=== PATIENT | female | born 1950 | race Caucasian/White ===

== ENCOUNTER → 2016-07-07 | Day surgery (SDC) | payer OTHER, BC ==
[2016-06-27 10:44] VITALS: BMI 26.0
[~2016-07-07] VITALS: Ht 160 cm; Wt 68.2 kg
[~2016-07-07] MED LIST: BIOTCAP2 PO; CHOL100010 PO; PRT/20 PO; SODIUM CHLORIDE 0.9% 500ML 500 ML IV ONE; VNTHFA/IN INH
[2016-07-07 13:52] VITALS: Ht 160 cm; Wt 68.2 kg
--- NOTE | 2016-07-07 14:14 | Endo History and Physical ---
History & Physical Date of Service: Jul 07, 2016. Chief Complaint: screening, family hx colon cancer (uncle) Referring Physician: Dr. Oconnor History of Present Illness 65 yo CF who presents for screening colonoscopy. Past Surgical History Hx Cardiac Surgery: No Hx Internal Defibrillator: No Hx Pacemaker: No Hx Abdominal Surgery: Yes (APPY, TUBAL LIGATION) Hx of Implantable Prosthesis: No Hx Post-Op Nausea and Vomiting: No Hx Cancer Surgery: No Hx Thoracic Surgery: No Hx Orthopedic: No Hx Urinary Tract Surgery: No Family History Colon CA Social History Smoking Status: Never Smoker Hx Substance Use: No Hx Alcohol Use: Yes (A COUPLE GLASSES WINE/WEEK) Allergies Coded Allergies: No Known Allergies (Verified , 07/07/16) Current Medications Reported Home Medications Medications Dose Route/Sig Max Daily Dose Days Date Category Biotin 5000 (Biotin) 5 Mg Cap 1 Cap PO QAM 06/27/16 Reported Ventolin Hfa (Albuterol) 200 Puffs/32608 Mcg Aers 2-4 Puffs INH Q6H PRN 06/27/16 Reported Protonix (Pantoprazole Sodium) 20 Mg Tab 20 Mg PO QAM 06/27/16 Reported Vitamin D (Cholecalciferol) 1,000 Unit Tab 1 Tab PO QAM 06/27/16 Reported Vital Signs Weight (Kilograms): 68.18 Height (Feet): 5 Height (Inches): 3 Date Time Temp Pulse Resp B/P Pulse Ox O2 Delivery O2 Flow Rate FiO2 07/07/16 14:02 36.5 69 20 137/87 97 Room Air Physical Exam General Appearance: WD/WN, no apparent distress Respiratory/Chest: Auscultation: breath sounds normal Cardiovascular: Heart Auscultation: RRR Abdomen: Bowel Sounds: normal Inspection & Palpation: soft, non-distended, no tenderness, guarding & rebound Assessment and Plan Assessment: 65 yo CF who presents for screening colonoscopy. Plan: Proceed with colonoscopy.
--- NOTE | 2016-07-07 14:43 | Discharge Instructions ---
Endoscopy Patient Instructions Date / Procedure(s) Performed Jul 07, 2016. Colonoscopy Allergy Information Coded Allergies: No Known Allergies (Verified , 07/07/16) Discharge Date / Findings Jul 07, 2016. Diverticulosis Internal hemorrhoids Medication Instructions OK to resume all medications today as prescribed. Reported Home Medications Medications Dose Route/Sig Max Daily Dose Days Date Category Biotin 5000 (Biotin) 5 Mg Cap 1 Cap PO QAM 06/27/16 Reported Ventolin Hfa (Albuterol) 200 Puffs/32735 Mcg Aers 2-4 Puffs INH Q6H PRN 06/27/16 Reported Protonix (Pantoprazole Sodium) 20 Mg Tab 20 Mg PO QAM 06/27/16 Reported Vitamin D (Cholecalciferol) 1,000 Unit Tab 1 Tab PO QAM 06/27/16 Reported Provider Instructions Activity Restrictions - No exercising or heavy lifting for 24 hours. - Do not drink alcohol the day of the procedure. - Do not drive a car or operate machinery until the day after the procedure. - Do not make any important decisions or sign important papers in 24 hours after the procedure. Following Day: - Return to full activity which may include returning to work/school. Diet Start your diet with liquids and light foods (jello, soup, juice, toast). Then eat your usual diet if not nauseated. Treatment For Common After Affects For mild abdominal pain, bloating, or excessive gas: - Rest - Eat lightly - Lie on right side Follow-Up Information Follow-up with Dr. Oconnor as scheduled Anesthesia Information What You Should Know You have had a procedure that required some medicine to reduce anxiety and discomfort. This treatment is called moderate sedation. After receiving the treatment, you may be sleepy, but you will be able to breathe on your own. The effects of the treatment may last for several hours. Follow these instructions along with Activity/Diet recommendations noted above: * Do NOT do anything where dizziness or clumsiness would be dangerous. * Rest quietly at home today, then you can be up and about tomorrow. * Have a responsible person stay with you the rest of today. * You may have had an I.V. today. If so, you may take the dressing off later today. Recommendations Call your doctor if: * Trouble breathing * Continuous vomiting for more than 24 hours * Temperature above 101 degrees * Severe abdominal pain or bloating * Pain not relieved by pain medicine ordered * There is increased drainage or redness from any incision * A large amount of rectal bleeding greater than 2-3 tablespoons. (If you had a polyp/s removed or have hemorrhoids, a small amount of blood - from the rectum is to be expected.) * You have any unanswered questions or concerns. IN THE EVENT OF A SERIOUS EMERGENCY, GO TO THE NEAREST EMERGENCY ROOM Your discharge instructions were prepared by provider Chu Argueta. Patient Instructions Signature Page Randa Collado Patient (or Guardian) Signature/Date: I have read and understand the instructions given to me by my caregivers. Caregiver/RN/Doctor Signature/Date: The above-named patient and/or guardian has received patient instructions on this date. + Original Patient Signature Page (only) stays with chart. Please make copy for patient.
--- NOTE | 2016-07-07 14:51 | Anesthesiology Progress Note ---
Anesthesia Post Op Note Date & Time Jul 07, 2016 at 14:52 Vital Signs Pain Intensity: 0 Vital Signs Past 12 Hours Date Time Temp Pulse Resp B/P Pulse Ox O2 Delivery O2 Flow Rate FiO2 07/07/16 14:37 69 16 119/64 97 Room Air 07/07/16 14:02 36.5 69 20 137/87 97 Room Air Notes Mental Status: alert / awake / arousable, participated in evaluation Pt Amnestic to Procedure: Yes Nausea / Vomiting: adequately controlled Pain: adequately controlled Airway Patency, RR, SpO2: stable & adequate BP & HR: stable & adequate Hydration State: stable & adequate Anesthetic Complications: no major complications apparent
[2016-07-07 15:07] VITALS: BP 106/63; PULSE 62; O2SAT 97
--- NOTE | 2016-07-07 15:09 | GI REPORT ---
Procedure Date: 07/07/2016 2:20 PM THIS REPORT HAS BEEN AMENDED Addendum Number: 1 Addendum Date: 07/07/2016 3:16:04 PM Report should state ASA classification 2 and no blood thinners or aspirin therapy. Procedure: Colonoscopy Indications: Screening for colorectal malignant neoplasm Medicines: Monitored Anesthesia Care Complications: No immediate complications. Estimated Blood Loss: Estimated blood loss: none. Procedure: Pre-Anesthesia Assessment: - Prior to the procedure, a History and Physical was performed, and patient medications and allergies were reviewed. The patient's tolerance of previous anesthesia was also reviewed. The risks and benefits of the procedure and the sedation options and risks were discussed with the patient. All questions were answered, and informed consent was obtained. Prior Anticoagulants: The patient has taken Eliquis (apixaban), last dose was 1 day prior to procedure. ASA Grade Assessment: III - A patient with severe systemic disease. After reviewing the risks and benefits, the patient was deemed in satisfactory condition to undergo the procedure. After I obtained informed consent, the scope was passed under direct vision. Throughout the procedure, the patient's blood pressure, pulse, and oxygen saturations were monitored continuously. The scope was introduced through the anus and advanced to the terminal ileum. The colonoscopy was performed without difficulty. The patient tolerated the procedure well. The quality of the bowel preparation was good. The terminal ileum, ileocecal valve, appendiceal orifice, and rectum were photographed. Findings: Multiple small-mouthed diverticula were found in the sigmoid colon. Non-bleeding internal hemorrhoids were found during retroflexion. The hemorrhoids were small. Impression: - Diverticulosis in the sigmoid colon. - Non-bleeding internal hemorrhoids. - No specimens collected. Recommendation: - Resume previous diet. - Continue present medications. - Repeat colonoscopy in 10 years for surveillance. - Return to primary care physician as previously scheduled. Chu Maria Alejandra Argueta, DO 07/07/2016 2:49:38 PM This report has been signed electronically. Note Initiated On: 07/07/2016 2:20 PM I attest to the content of the Intraoperative Record and orders documented therein, exceptions below Chu StahlShawn Argueta, DO 07/07/2016 3:16:38 PM This report has been signed electronically.
== END | disposition home or self-care (01) ==
LOC: C.GI 13:15
PROVIDERS: ATTEND Internal Medicine
DX: Z12.11 Encounter for screening for malignant neoplasm of colon (principal); K64.8 Other hemorrhoids; K57.30 Diverticulosis of large intestine without perforation or abscess without bleeding; Z80.0 Family history of malignant neoplasm of digestive organs; Z98.890 Other specified postprocedural states; Z98.51 Tubal ligation status

== ENCOUNTER → 2016-07-18 | Outpatient (CLI) | payer OTHER, BC ==
[~2016-07-18] MED LIST changes: -SODIUM CHLORIDE 0.9% 500ML 500 ML IV ONE
[2016-07-18 10:12] LABS: BLOOD UREA NITROGEN 12 mg/dl (7-18); BUN/CREATININE RATIO 18.3 (10-20); CALCIUM 9.4 mg/dl (8.5-10.1); CARBON DIOXIDE 30 mmol/L (21-32); CHLORIDE 103 mmol/L (98-107); CHOLESTEROL 229 mg/dl (0-200); CREATININE 0.66 mg/dl (0.60-1.20); GLUCOSE 98 mg/dl (70-99); SODIUM 140 mmol/L (136-145)
[2016-07-18 10:22] LABS: CHOLESTEROL/HDL RATIO 3.2; HDL CHOLESTEROL 71 mg/dl; LDL CHOLESTEROL CALCULATED 138 mg/dl; THYROID STIMULATING HORMONE 0.953 uIu/ml (0.300-4.500); TRIGLYCERIDES 102 mg/dl (0-150); VERY LOW DENSITY LIPOPROT CALC 20 mg/dl
--- NOTE | 2016-07-22 11:36 | CODING QUERY MEDICAL NECESSITY ---
SUPPORTING DIAGNOSIS NEEDED A supporting diagnosis is required for the test/procedure performed on this patient in order for us to be reimbursed by the patient's insurance. Please provide a supporting diagnosis for the following test/procedure listed below next to the test name along with your signature. *If there is no additional diagnosis for this patient that would support the following test/procedure please document that below next to the test/procedure. Test(s)/Procedure(s) that require a supporting diagnosis: DOS 07/18 * Vitamin D DIAGNOSIS: * Lipids DIAGNOSIS: Provider Signature: Date: Thank you Steff Bo Health Information Management Once completed, please kindly fax back to [phone] For questions please call [phone]
== END | disposition home or self-care (01) ==
LOC: C.LAB1850 08:55
PROVIDERS: ATTEND Family Medicine
DX: Z11.59 Encounter for screening for other viral diseases (principal); Z12.11 Encounter for screening for malignant neoplasm of colon; Z00.00 Encounter for general adult medical examination without abnormal findings; M85.80 Other specified disorders of bone density and structure, unspecified site; E04.2 Nontoxic multinodular goiter

== ENCOUNTER → 2016-08-09 | Outpatient (CLI) | payer OTHER, BC | END | disposition home or self-care (01) | LOC: C.MAMM 10:41 | PROVIDERS: ATTEND Family Medicine | DX: M85.89 Other specified disorders of bone density and structure, multiple sites (principal); Z78.0 Asymptomatic menopausal state ==

== ENCOUNTER 2021-03-03 19:07 | Observation (INO) ==
[2021-03-03 20:17] LABS: Basophils # (auto) 0.01 K/uL (0-0.2); Basophils % (auto) 0.1 %; Eosinophils # (auto) 0.01 K/uL (0-0.5); Eosinophils % (auto) 0.1 %; Hematocrit (blood only) 46.1 % (37-47); Hemoglobin 15.6 g/dL (12.0-16.0); Immature Granulocytes # (auto) 0.04 K/uL (0.00-0.02); Immature Granulocytes % (auto) 0.2 %; Lymphocytes % (auto) 8.6 %; Mean Corpuscular Hemoglobin 31.5 pg (25-34); Mean Corpuscular Hgb Conc 33.8 g/dL (32-36); Mean Corpuscular Volume 92.9 fL (80-100); Mean Platelet Volume 10.3 fL (7.4-10.4); Monocytes % (auto) 4.6 %; Neutrophils # (auto) 15.14 K/uL (1.4-6.5); Neutrophils % (auto) 86.4 %; Platelet Count 327 K/uL (130-400); RDW Coefficient of Variation 13.6 % (11.5-14.5); RDW Standard Deviation 46.2 fL (36.4-46.3); Red Blood Count 4.96 M/uL (4.2-5.4)
[2021-03-03 20:26] LABS: Appearance Urine Clear (Clear); Bilirubin Urine Negative (Negative); Blood Urine Negative (Negative); Color Urine Yellow; Glucose Urine UA Negative (Negative); Ketones Urine Trace (Negative); Leukocyte Esterase Urine Negative (Negative); Nitrite Urine Negative (Negative); Protein Urine Negative (Negative); Specific Gravity Urine 1.021 (1.000-1.030); Urobilinogen Urine Negative (Negative)
[2021-03-03 20:45] LABS: Albumin Level 3.8 gm/dl (3.4-5.0); BUN Creatinine Ratio 18.4 (10-20); Calcium 11.2 mg/dl (8.5-10.1); Creatinine Clr Calc Pharmacy 61.2 ml/min; Est GFR (African American) 90.8 ml/min; Est GFR (Non-African American) 78.4 ml/min; Potassium 3.8 mmol/L (3.5-5.1)
[2021-03-03 20:48] LABS: Albumin Globulin Ratio 0.9 (0.9-2); Bilirubin,Total 0.3 mg/dl (0.2-1); Globulin 4.2 gm/dl (2.5-4.0)
--- NOTE | 2021-03-03 20:56 | Emergency Department Note ---
Impression & Plan Acute cholecystitis, Abdominal pain, Hypercalcemia, Nausea ED Provider Note NAME: CALI FUNEZ AGE: 70 SEX: F : 1950 ARRIVES VIA: Walk-In INFORMANT: Patient, ED PROVIDER(S): Shashi Chaudhary MD Chief Complaint: Abdominal pain HPI: Patient does present with concern for upper abdominal pain beginning around noon today. The patient did remark that she had a cataract surgery yesterday but felt fine after completion of the surgery. The patient states that there was no inciting event that caused her pain. The patient states that she was not eating anything that time. The patient has had nausea but without vomiting. The patient describes it as constant and primarily in the upper portion of the abdomen. The patient denies any dysuria, hematuria, hematochezia. The patient is at a recent bowel movement. No vaginal bleeding or discharge. Patient is vaccinated for COVID-19. The patient will typically drink 1 glass of wine with her evening meal but denies excessive drinking, tobacco or drug use. Patient denies any shortness of breath or chest pain. Patient denies URI type symptoms. Patient does have history of prior appendectomy and tubal ligation. ROS: See HPI for pertinent positives and negatives. A total of 10 systems were reviewed and otherwise negative. Past medical history: See below Surgical history: See below Social history: See below Physical Exam: GENERAL: NAD, wearing glasses, wearing a mask, non-toxic. EYE EXAM: Normal conjunctiva. PERRL, no anisocoria and EOM's grossly intact w/o pain. OROPHARYNX: Moist mucus membranes. Grossly normal dentition. No exudate, posterior pharynx is clear, no tonsillar/uvular deviation or swelling. No cervical adenopathy, no submental, submandibular, or sublingual swelling. NECK: Supple, no nuchal rigidity, no adenopathy, non-tender. No signs of meningismus. FROM of the neck with good chin to chest and neck extension. No s tridor. LUNGS: Clear to auscultation. Normal chest wall mechanics. HEART: NSR, no MRG. ABDOMEN: Abdomen soft, upper abdominal pain without lower abdominal pain, normo- active bowel sounds, no masses, no rebound or guarding. BACK: No CVA TTP. SKIN: No rashes and no bruising. UPPER EXTREMITIES: Upper extremities are grossly normal. LOWER EXTREMITIES: Grossly normal, no edema. NEURO EXAM: A&O x3, cranial nerves II-XII grossly intact, normal speech, moves all 4 extremities on command w/o issue. Differential diagnoses: Appendicitis, ovarian cyst, ovarian torsion, ectopic , TOA, PID, infections, diverticulitis, UTI, obstruction, mesenteric ischemia, aortic pathology, inflammatory bowel disease, renal colic, PUD, pancreatitis, biliary pathology, hernia, volvulus, constipation, as well as other pathologies. Course: Patient was seen and evaluated the bedside. Full history physical exam was performed. EKG interpreted by me Normal sinus rhythm, rate 85, normal intervals, normal axis, no ST changes or T WI. Imaging Studies: See Below Cardiac monitoring: An order was placed for continuous cardiac monitoring. The monitor shows a rate of 89 with sinus rhythm. MDM: Patient does present due to concern for upper abdominal pain. The patient did have blood work completed which showed a white count of 17. CT of the abdomen pelvis was ordered. This did show concern for acute cholecystitis. I did speak the on-call general surgery team Woody Mcneill the patient was admitted by Dr. Wray general surgery. Past Med/Surg History Medical History Acid reflux disease Asthma Benign paroxysmal positional vertigo GERD (gastroesophageal reflux disease) Internal hemorrhoids Multinodular goiter Osteopenia Prolapse of female pelvic organs Surgical History History of appendectomy History of tonsillectomy and adenoidectomy History of tubal ligation History of wisdom tooth extraction Family History Uncle Colorectal cancer Mother Heart failure Father Prostate cancer Denies family history of Ovarian cancer Myocardial infarction Breast cancer Social History Smoking Status: Never smoker Tobacco Type: Cigarettes Second Hand Exposure: Yes (Parents smoked); Hx Alcohol Use: Yes Alcohol Intake Frequency: 4 or More x per/Week Alcohol Intake Frequency Comment: wine with dinner Hx Substance Use: No Preferred Language: Macedonian Beliefs That Will Affect Care: Sikh Sikh Beliefs: attends [employer] marital status: Current Living Situation: Spouse Current Living Situation Comment: Lives with spouse - Noe current occupational status: retired 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 Feels Safe at Home: Yes Seatbelt Use: always Allergies Allergies Allergy/AdvReac Type Severity Reaction Status Date / Time house dust Allergy Mild ITCHY Verified 03/03/21 21:36 EYES, SNEEZING amoxicillin [From Augmentin] AdvReac Intermediate Diarrhea Verified 03/03/21 21:36 clavulanic acid AdvReac Intermediate Diarrhea Verified 03/03/21 21:36 [From Augmentin] Home Meds Home Medications Medication Instructions Recorded Confirmed cholecalciferol (vitamin D3) 50 1,000 unit PO DAILY tab 03/18/20 03/03/21 mcg (2,000 unit) tablet famotidine 20 mg tablet 20 mg PO DAILY 03/18/20 03/03/21 B [id number] tablet 1 tab PO DAILY 03/03/21 03/03/21 Previous Rx's Medication Instructions Recorded albuterol sulfate 90 mcg/actuation 2 puffs INH Q6H PRN #8 gm 05/04/19 aerosol inhaler (Ventolin HFA) ondansetron 4 mg disintegrating 4 mg PO Q6H PRN #10 tab 12/21/20 tablet Results & Data (ED) Vital Signs Vital Signs - 24 hr 03/03/21 19:21 03/03/21 20:52 03/03/21 21:00 Temperature 37.4 C Temperature Source Temporal Artery Scan Pulse Rate 81 82 Pulse Rate from SpO2 Sensor Respiratory Rate 18 21 Respiratory Effort / Characteristics Non-Labored Spontaneous Respiratory Depth Normal Blood Pressure 166/88 H 155/94 H Blood Pressure Mean 114 114 Pulse Oximetry 95 97 Oxygen Delivery Method Room Air Room Air Sepsis Recent Fever Within 48 Hours No Sepsis New/Unexplained Change in Mental Status No Sepsis Action Taken by Nursing No Action Required 03/03/21 22:00 03/03/21 22:10 03/03/21 22:20 Temperature Temperature Source Pulse Rate 82 78 85 Pulse Rate from SpO2 Sensor 78 87 Respiratory Rate 19 20 20 Respiratory Effort / Characteristics Respiratory Depth Blood Pressure 144/87 H Blood Pressure Mean 106 Pulse Oximetry 94 94 97 Oxygen Delivery Method Sepsis Recent Fever Within 48 Hours Sepsis New/Unexplained Change in Mental Status Sepsis Action Taken by Nursing 03/03/21 22:30 03/04/21 00:00 03/04/21 00:50 Temperature Temperature Source Pulse Rate 84 80 80 Pulse Rate from SpO2 Sensor 80 Respiratory Rate 18 15 19 Respiratory Effort / Characteristics Respiratory Depth Blood Pressure 155/83 H 125/69 122/76 Blood Pressure Mean 107 87 91 Pulse Oximetry 94 90 92 Oxygen Delivery Method Sepsis Recent Fever Within 48 Hours Sepsis New/Unexplained Change in Mental Status Sepsis Action Taken by [facility] Medications Current Medication List: was personally reviewed by me Laboratory Data Attestation: I reviewed the patient's lab results. Result diagrams: 03/03/21 20:07 03/03/21 20:07 Lab Results 03/03/21 03/03/21 03/03/21 Range/Units 20:07 20:07 20:07 WBC 17.50 H (4.8-10.8) K/uL RBC 4.96 (4.2-5.4) M/uL Hgb 15.6 (12.0-16.0) g/dL Hct 46.1 (37-47) % MCV 92.9 (80-100) fL MCH 31.5 (25-34) pg MCHC 33.8 (32-36) g/dL RDW Std Deviation 46.2 (36.4-46.3) fL RDW Coeff of Yun 13.6 (11.5-14.5) % Plt Count 327 (130-400) K/uL MPV 10.3 (7.4-10.4) fL Immature Gran % (Auto) 0.2 % Neut % (Auto) 86.4 % Lymph % (Auto) 8.6 % Sebastian % (Auto) 4.6 % Eos % (Auto) 0.1 % Baso % (Auto) 0.1 % Neut # (Auto) 15.14 H (1.4-6.5) K/uL Lymph # (Auto) 1.50 (1.2-3.4) K/uL Sebastian # (Auto) 0.80 H (0.11-0.59) K/uL Eos # (Auto) 0.01 (0-0.5) K/uL Baso # (Auto) 0.01 (0-0.2) K/uL Immature Gran # (Auto) 0.04 H (0.00-0.02) K/uL Sodium 137 (136-145) mmol/L Potassium 3.8 (3.5-5.1) mmol/L Chloride 102 (98-107) mmol/L Carbon Dioxide 27 (21-32) mmol/L Anion Gap 7.0 (3-11) BUN 14 (7-18) mg/dl Creatinine 0.76 (0.6-1.2) mg/dl Est Cr Clr Drug Dosing 61.2 ml/min Est GFR ( Amer) 90.8 ml/min Est GFR (Non-Af Amer) 78.4 ml/min BUN/Creatinine Ratio 18.4 (10-20) Glucose 136 H (70-99) mg/dl Calcium 11.2 H (8.5-10.1) mg/dl Total Bilirubin 0.3 (0.2-1) mg/dl AST 15 (15-37) U/L ALT 27 (12-78) U/L Alkaline Phosphatase 129 H (45-117) U/L Total Protein 8.0 (6.4-8.2) gm/dl Albumin 3.8 (3.4-5.0) gm/dl Globulin 4.2 H (2.5-4.0) gm/dl Albumin/Globulin Ratio 0.9 (0.9-2) Lipase 99 (73-393) U/L Urine Color Yellow Urine Appearance Clear (Clear) Urine pH 5.0 (4.5-7.5) Ur Specific [place] 1.021 (1.000-1.030) Urine Protein Negative (Negative) Urine Glucose (UA) Negative (Negative) Urine Ketones Trace H (Negative) Urine Blood Negative (Negative) Urine Nitrite Negative (Negative) Urine Bilirubin Negative (Negative) Urine Urobilinogen Negative (Negative) Ur Leukocyte Esterase Negative (Negative) COVID-19 Eval Order SARS-CoV-2 (PCR) (Negative) 03/03/21 03/03/21 Range/Units 22:49 22:49 WBC (4.8-10.8) K/uL RBC (4.2-5.4) M/uL Hgb (12.0-16.0) g/dL Hct (37-47) % MCV (80-100) fL MCH (25-34) pg MCHC (32-36) g/dL RDW Std Deviation (36.4-46.3) fL RDW Coeff of Yun (11.5-14.5) % Plt Count (130-400) K/uL MPV (7.4-10.4) fL Immature Gran % (Auto) % Neut % (Auto) % Lymph % (Auto) % Sebastian % (Auto) % Eos % (Auto) % Baso % (Auto) % Neut # (Auto) (1.4-6.5) K/uL Lymph # (Auto) (1.2-3.4) K/uL Sebastian # (Auto) (0.11-0.59) K/uL Eos # (Auto) (0-0.5) K/uL Baso # (Auto) (0-0.2) K/uL Immature Gran # (Auto) (0.00-0.02) K/uL Sodium (136-145) mmol/L Potassium (3.5-5.1) mmol/L Chloride (98-107) mmol/L Carbon Dioxide (21-32) mmol/L Anion Gap (3-11) BUN (7-18) mg/dl Creatinine (0.6-1.2) mg/dl Est Cr Clr Drug Dosing ml/min Est GFR ( Amer) ml/min Est GFR (Non-Af Amer) ml/min BUN/Creatinine Ratio (10-20) Glucose (70-99) mg/dl Calcium (8.5-10.1) mg/dl Total Bilirubin (0.2-1) mg/dl AST (15-37) U/L ALT (12-78) U/L Alkaline Phosphatase (45-117) U/L Total Protein (6.4-8.2) gm/dl Albumin (3.4-5.0) gm/dl Globulin (2.5-4.0) gm/dl Albumin/Globulin Ratio (0.9-2) Lipase (73-393) U/L Urine Color Urine Appearance (Clear) Urine pH (4.5-7.5) Ur Specific [place] (1.000-1.030) Urine Protein (Negative) Urine Glucose (UA) (Negative) Urine Ketones (Negative) Urine Blood (Negative) Urine Nitrite (Negative) Urine Bilirubin (Negative) Urine Urobilinogen (Negative) Ur Leukocyte Esterase (Negative) COVID-19 Eval Order Covid19 at [facility] SARS-CoV-2 (PCR) NEGATIVE (Negative) Administered Medications Discontinued Medications Cefoxitin Sodium (Mefoxin) 2,000 mg in 60 mls @ 100 mls/hr IV NOW STA Stop: 03/03/21 23:18 Last Infusion: 03/04/21 00:30 Dose: 0 mls/hr Documented by: [id number] Admin: 03/03/21 23:52 Dose: 100 mls/hr Documented by: [id number] Ioversol (Optiray 320 100ml) 92 ml IV ONCE ONE Stop: 03/03/21 21:31 Last Admin: 03/03/21 21:30 Dose: 92 ml Documented by: [id number] Morphine Sulfate (Morphine Sulfate 4 Mg/Ml 1 Ml Carp\Vial) 4 mg IV NOW STA Stop: 03/03/21 23:37 Last Admin: 03/03/21 23:48 Dose: 4 mg Documented by: [id number] Ondansetron HCl (Ondansetron Inj 2 Mg/Ml 2 Ml Vial) 4 mg IV NOW STA Stop: 03/03/21 21:09 Last Admin: 03/03/21 21:13 Dose: 4 mg Documented by: [id number] Imaging Data Radiologist's Impression: CT abdomen pelvis per stat read shows gallbladder distention, cholelithiasis and mild edema. Findings suggest cholecystitis. Discharge Plan Visit Data Chief Complaint: Abdominal Pain Stated Complaint: UPPER ABDOMINAL PAIN ED Provider: Shashi Chaudhary Discharge Problem: Acute cholecystitis, Abdominal pain, Hypercalcemia, Nausea Patient Disposition: Admitted As Inpatient Discharge Instructions Interventions: ED Discharge Assessment Last Done: 03/04/21 00:53 Forms Stand Alone Forms: [place] [place] Prescriptions Prescriptions: No Action albuterol sulfate [Ventolin HFA] 90 mcg/actuation HFA aerosol inhaler 2 puffs INH Q6H PRN (Reason: shortness of breath or wheezing) Qty: 8 RF: 0 cholecalciferol (vitamin D3) 50 mcg (2,000 unit) tablet 1,000 unit PO DAILY RF: 0 famotidine 20 mg tablet 20 mg PO DAILY RF: 0 ondansetron 4 mg tablet,disintegrating 4 mg PO Q6H PRN (Reason: nausea and vomiting) Qty: 10 RF: 0 B [id number] Tablet 1 tab PO DAILY RF: 0 Referrals Referrals: Bereket Partida III, CRNP [Primary Care Provider] - Discharge Problem: Abdominal pain Qualifiers: Abdominal location: right upper quadrant Qualified Code(s): R10.11 - Right upper quadrant pain
[2021-03-03] MEDS ORDERED: ONDANSETRON INJ 2 MG/ML 2 ML VIAL IV STA (21:08)
[2021-03-03] MEDS ORDERED: OPTIRAY 320 100ml IV ONE (21:30)
[2021-03-03] MEDS ORDERED: cefOXitin 2,000 MG/60 ML BAG IV STA (22:43)
--- NOTE | 2021-03-03 22:56 | History & Physical Report ---
Date of Service March 03, 2021 Assessment & Plan (1) Cholecystitis: Plan: Due to the patient's imaging and clinical presentation we will bit the patient and proceed as follows: Provide analgesics Provide antiemetics Maintain n.p.o. status Provide IV fluid for hydration We will administer antibiotics in the form of cefoxitin We will check a gallbladder ultrasound for more definitive evaluation of her biliary system We will repeat labs including a CBC and a CMP in the morning We will tentatively plan on cholecystectomy tomorrow. I have discussed the risks, benefits, and alternatives with the patient and she is willing to proceed. Dr. Wray will discuss with her further in the morning We will check a preoperative chest x-ray We will check a preoperative EKG We will check a Covid test The patient be a level 1 full code We will use SCDs for DVT prevention. We will not use chemical means due to planned surgery. History of Present Illness Chief Complaint: Cholecystitis Primary Care Provider: Bereket Partida III, MARU This is a 70-year-old female who presented to [facility] emergency department secondary abdominal pain. The patient says that the abdominal pain is located in her upper abdomen in the epigastric, left upper quadrant, as well as right upper quadrant.The patient notes that the pain occurred randomly and was not related to meals. She says that the pain does not radiate. She denies any provocative factors and notes that the pain is palliated with medicines administered in the emergency department. She denies any fevers, shakes, chills. She did have nausea without vomiting. Looking back over the past several months patient says that intermittently she will get some indigestion 20 to 30 minutes after eating but has never been problematic such as this. Because of her symptoms she presented the emergency department. The patient does note that she has had prior abdominal surgery as she has had a laparoscopic appendectomy in the past. In the emergency department patient had labs and imaging which I independently reviewed. She did have a CT scan of the abdomen and pelvis which showed gallbladder distention with cholelithiasis. There is mild gallbladder edema. The interpreting radiologist favored a diagnosis of cholecystitis on the study. Labs include a CBC her white blood cell count was elevated at 17.5. Her hemoglobin, hematocrit, and platelet count were within normal range. Chemistry profile showed sodium, potassium, BUN, and creatinine were within normal range. Patient's bilirubin and transaminases were noted to be normal and not elevated. There is no elevation of her lipase. There is slight elevation of the alkaline phosphatase at 129. Urinalysis was not indicative of infection. I questioned the patient about her day-to-day activities and she leads an active lifestyle. The patient says that she can easily walk a mile on a flat surfaces she can negotiate steps and inclines without chest pain or shortness of breath. At time of interview she was resting comfortably in bed in no distress. Allergies Allergy/AdvReac Type Severity Reaction Status Date / Time house dust Allergy Mild ITCHY Verified 03/03/21 21:36 EYES, SNEEZING amoxicillin [From Augmentin] AdvReac Intermediate Diarrhea Verified 03/03/21 21:36 clavulanic acid AdvReac Intermediate Diarrhea Verified 03/03/21 21:36 [From Augmentin] Home Medications Medication Instructions Recorded Confirmed Type albuterol sulfate 90 mcg/actuation 2 puffs INH Q6H PRN #8 gm 05/04/19 03/03/21 Rx aerosol inhaler (Ventolin HFA) cholecalciferol (vitamin D3) 50 1,000 unit PO DAILY tab 03/18/20 03/03/21 History mcg (2,000 unit) tablet famotidine 20 mg tablet 20 mg PO DAILY 03/18/20 03/03/21 History ondansetron 4 mg disintegrating 4 mg PO Q6H PRN #10 tab 12/21/20 03/03/21 Rx tablet B [id number] tablet 1 tab PO DAILY 03/03/21 03/03/21 History Past Med/Surg History Medical History Acid reflux disease Asthma Benign paroxysmal positional vertigo GERD (gastroesophageal reflux disease) Internal hemorrhoids Multinodular goiter Osteopenia Prolapse of female pelvic organs Surgical History History of appendectomy History of tonsillectomy and adenoidectomy History of tubal ligation History of wisdom tooth extraction Family History Uncle Colorectal cancer Mother Heart failure Father Prostate cancer Denies family history of Ovarian cancer Myocardial infarction Breast cancer Social History Smoking Status: Former smoker Tobacco Type: Cigarettes Smoking End Date: ; Second Hand Exposure: Yes (Parents smoked); Hx Alcohol Use: Yes Alcohol type: wine Alcohol Intake Frequency: 4 or More x per/Week Alcohol Intake Frequency Comment: wine with dinner Hx Substance Use: No Preferred Language: Tamazight Communication Ability: Effective Pathologist Assistant Required: No Beliefs That Will Affect Care: None marital status: Current Living Situation: Spouse Current Living Situation Comment: Lives with spouse - [place] current occupational status: retired 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 Other Information That Helps Us Care for You: No Feels Safe at Home: Yes Safety Concerns: Feels Safe At This Time Seatbelt Use: always Assistive Devices: None Review of Systems Constitutional: no fever and no chills Eyes: no diplopia Ear, Nose, Mouth, Throat: no ear pain and no sore throat Respiratory: no cough and no dyspnea Cardiovascular: no chest pain Gastrointestinal: + abdominal pain and + nausea; no vomiting Genitourinary: no dysuria Musculoskeletal: no back pain Integumentary: no rash Neurologic: no localized weakness Physical Exam Constitutional: well developed and well nourished; no acute distress and not ill appearing Eyes: Wears glasses ENMT: Ears: no hearing impairment Mouth: no oropharynx abnormality Neck: trachea midline Respiratory: normal respiratory effort; no respiratory distress and no labored breathing Cardiovascular: Rate/Rhythm: regular rate and regular rhythm Gastrointestinal (Abdomen): Abdomen soft and nondistended. There is no r ebound tenderness or guarding. Patient did have pain with palpation in the epigastric area and to a greater extent the right upper quadrant. Kirk sign was noted to be positive Musculoskeletal: No calf tenderness Skin: no rashes Neurologic: moves all extremities Psychiatric: A+Ox3, euthymic affect Results & Data Results & Data ([facility]) Vital Signs (Past 12 Hours) Vital Signs Temp Pulse Resp BP Pulse Ox 03/03/21 22:20 85 20 97 03/03/21 22:10 78 20 94 03/03/21 22:00 82 19 144/87 H 94 03/03/21 21:00 82 21 155/94 H 97 03/03/21 19:21 37.4 C 81 18 166/88 H 95 Code Status & VTE Plan VTE Prophylaxis Plan VTE Prophylaxis will be ordered: Yes Supervising Physician Co-Signing Physician Notes Patient discussed with CONCETTA Rdz overnight, labs and imaging reviewed, agree with above. 70-year-old female with acute calculus cholecystitis, will plan for admission and laparoscopic cholecystectomy on 04 March. PG Care Time/CCT Total # of Minutes Spent Total Time Spent with Patient: Total time spent is greater than 50% in coordination of care (as documented) at patient's floor/unit and/or counseling patient: Coding Level of Care Code INT OBSERVATION CARE 70M LVL 3 Diagnoses Cholecystitis K81.9
[2021-03-03] MEDS ORDERED: MoRPHine SULFATE 4 MG/ML 1 ML CARP\\VIAL IV STA (23:36)
[2021-03-04] MEDS ORDERED: ONDANSETRON INJ 2 MG/ML 2 ML VIAL IV PRN ×2 (01:41→12:37)
[2021-03-04] MEDS ORDERED: ALBUTEROL HFA 8 GM INHALER INH PRN (01:41)
[2021-03-04] MEDS: LACTATED RINGER'S 1,000 ML IV SCH ×2 (02:20→18:53)
[2021-03-04] MEDS: cefOXitin 2,000 MG in DEXTROSE 5% 50 ML IV SCH ×4 (05:39→23:04)
[2021-03-04] MEDS: MoRPHine SULFATE 4 MG/ML 1 ML CARP\\VIAL IV PRN ×2 (05:48→09:38)
[2021-03-04 05:58] LABS: Basophils # (auto) 0.01 K/uL (0-0.2); Basophils % (auto) 0.1 %; Eosinophils # (auto) 0.01 K/uL (0-0.5); Eosinophils % (auto) 0.1 %; Hematocrit (blood only) 42.6 % (37-47); Immature Granulocytes # (auto) 0.04 K/uL (0.00-0.02); Immature Granulocytes % (auto) 0.3 %; Lymphocytes # (auto) 2.14 K/uL (1.2-3.4); Lymphocytes % (auto) 14.2 %; Mean Corpuscular Hemoglobin 31.1 pg (25-34); Mean Corpuscular Volume 94.7 fL (80-100); Monocytes # (auto) 0.95 K/uL (0.11-0.59); Monocytes % (auto) 6.3 %; Neutrophils # (auto) 11.89 K/uL (1.4-6.5); Platelet Count 257 K/uL (130-400); RDW Coefficient of Variation 13.6 % (11.5-14.5); RDW Standard Deviation 47.4 fL (36.4-46.3); White Blood Count 15.04 K/uL (4.8-10.8)
[2021-03-04 06:10] LABS: Mean Corpuscular Hgb Conc 32.9 g/dL (32-36)
[2021-03-04 06:23] LABS: Albumin Globulin Ratio 0.8 (0.9-2); Albumin Level 3.1 gm/dl (3.4-5.0); BUN Creatinine Ratio 14.1 (10-20); Bilirubin,Total 0.6 mg/dl (0.2-1); Calcium 9.5 mg/dl (8.5-10.1); Creatinine Clr Calc Pharmacy 58.8 ml/min; Est GFR (African American) 86.7 ml/min; Est GFR (Non-African American) 74.8 ml/min; Globulin 3.7 gm/dl (2.5-4.0); Potassium 3.9 mmol/L (3.5-5.1); Total Protein 6.8 gm/dl (6.4-8.2)
--- NOTE | 2021-03-04 07:22 | Ultrasound Report ---
ULTRASOUND RIGHT UPPER QUADRANT ABDOMEN CLINICAL HISTORY: Right upper quadrant abdominal pain. COMPARISON STUDY: Abdominal CT performed the same day 03/03/2021. TECHNIQUE: Real-time, grayscale, and color flow sonography of the right upper quadrant of the abdomen was performed. Images are reviewed in the transverse and longitudinal planes. FINDINGS: Liver: The liver is normal in size and echotexture. There is no intrahepatic biliary ductal dilatatio n. The main portal vein is patent. Scattered hepatic cysts measure up to 3.5 cm. Gallbladder: The gallbladder is distended and contains both shadowing gallstones and sludge. Several stones are seen in the region of the gallbladder neck. The gallbladder wall is thickened and edematou s, measuring up to 5 mm. There is no pericholecystic fluid. A sonographic Kirk's sign could not be evaluated as the patient received analgesia. The common bile duct measures up to 0.3 cm in diameter. Pancreas: Visualized portions of the pancreatic head and body are normal in appearance. Right kidney: Survey images of the right kidney demonstrate normal size and echotexture. There is no hydronephrosis. Ascites: None. IMPRESSION: 1. Cholelithiasis with evidence of acute cholecystitis. Surgical consultation is advised. 2. No intra or extrahepatic biliary ductal dilatation is identified. ACT 112: Negative or not required by law. Electronically signed by: Gaston Baum M.D. 03/04/2021 7:20 AM
--- NOTE | 2021-03-04 07:26 | CT Scan Report ---
CT abd pelvis IV con only CLINICAL HISTORY: upper ab pain TECHNIQUE: Helical axial images of the abdomen and pelvis were obtained and displayed. Automated dose lowering techniques and/or adjustment according to patient size were utilized for this exam. This e xam was performed with intravenous contrast. COMPARISON: None available at the time of this dictation. FINDINGS: Lower chest: Bibasilar atelectasis is seen. Liver: Multiple hypodensities are seen compatible with cysts Gallbladder and biliary tree: Distended gallbladder with multiple stones in the gallbladder body and neck. Mild wall thickening to approximately 4 mm in cholecystic fluid noted. No intra- or extrahepati c biliary ductal dilation. Pancreas: Unremarkable, no focal lesions. Spleen: Unremarkable. Adrenals: Unremarkable. Kidneys and ureters: Unremarkable. Bladder: Unremarkable. Reproductive organs: Unremarkable. Bowel: Diverticulosis is seen without evidence of diverticulitis. Lymph nodes Retroperitoneal: Unremarkable. Mesenteric: Unremarkable. Pelvic: Unremarkable. Peritoneum: Normal Vessels: Atherosclerosis is seen. Abdominal wall: A fat-containing umbilical hernia is seen. Bones: Degenerative changes in the visualized spine. IMPRESSION: Findings are compatible with acute cholecystitis. ACT 112: Negative or not required by law. Electronically signed by: Rishi Antunez M.D. 03/04/2021 7:25 AM
--- NOTE | 2021-03-04 07:39 | XRay Report ---
XR chest 1V portable CLINICAL HISTORY: Cholecystitis TECHNIQUE: Single frontal radiograph of the chest was obtained. Comparison: None available at the time of this dictation. FINDINGS: No lines and tubes are seen. The cardiomediastinal silhouette is normal. Bibasilar atelectasis is not ed. No evidence of pleural effusion or pneumothorax. IMPRESSION: No acute chest disease. ACT 112: Negative or not required by law. Electronically signed by: Rishi Antunez M.D. 03/04/2021 7:37 AM
--- NOTE | 2021-03-04 09:35 | Anesthesiology Consultation ---
Date of Service March 04, 2021 Assessment & Plan (1) Encounter for pre-operative examination: Chart Review Chart Review: Acceptable Risk for Surgery History Surgery Operation Date: 03/04/21 09:20 Proposed Procedures p Laparoscopic Cholecystectomy - Cameron Wray DO, JOSUE Height/Weight Height: 5 ft 2 in Weight: 69.5 kg Allergies Allergy/AdvReac Type Severity Reaction Status Date / Time house dust Allergy Mild ITCHY Verified 03/03/21 21:36 EYES, SNEEZING amoxicillin [From Augmentin] AdvReac Intermediate Diarrhea Verified 03/03/21 21:36 clavulanic acid AdvReac Intermediate Diarrhea Verified 03/03/21 21:36 [From Augmentin] Medications Home Medications Medication Instructions Recorded Confirmed Last Taken albuterol sulfate 90 mcg/actuation 2 puffs INH Q6H PRN #8 gm 05/04/19 03/03/21 12/21/18 aerosol inhaler (Ventolin HFA) cholecalciferol (vitamin D3) 50 1,000 unit PO DAILY tab 03/18/20 03/03/21 03/03/21 mcg (2,000 unit) tablet famotidine 20 mg tablet 20 mg PO DAILY 03/18/20 03/03/21 03/03/21 ondansetron 4 mg disintegrating 4 mg PO Q6H PRN #10 tab 12/21/20 03/03/21 Unknown tablet B [id number] tablet 1 tab PO DAILY 03/03/21 03/03/21 03/03/21 Active Medications Generic Name Dose Route Start Last Admin Trade Name Freq PRN Reason Stop Dose Admin Lactated Ringer's 1,000 mls @ 75 mls/hr 03/04/21 01:41 03/04/21 02:20 Lr IV 04/03/21 01:40 75 mls/hr .[id number] MEGAN Administration Cefoxitin Sodium 2,000 mg/ 60 mls @ 100 mls/hr 03/04/21 06:00 03/04/21 06:25 Dextrose IV 03/14/21 01:40 Infused Q6H MEGAN Infusion Morphine Sulfate 3 mg 03/04/21 01:41 03/04/21 05:48 Morphine Sulfate 4 Mg/Ml 1 Ml Carp\Vial IV 03/18/21 01:40 3 mg Q3H PRN Administration Pain NPO Date Last Intake of Fluids: 03/03/21 Past Medical History Medical History Acid reflux disease Asthma Benign paroxysmal positional vertigo GERD (gastroesophageal reflux disease) Internal hemorrhoids Multinodular goiter Osteopenia Prolapse of female pelvic organs Past Family History Family History Uncle Colorectal cancer Mother Heart failure Father Prostate cancer Denies family history of Ovarian cancer Myocardial infarction Breast cancer Past Surgical History Surgical History History of appendectomy History of tonsillectomy and adenoidectomy History of tubal ligation History of wisdom tooth extraction Social History Smoking Status: Former smoker Smoking End Date: Hx Alcohol Use: Yes Alcohol type: wine Alcohol Intake Frequency Comment: GLASS OF WINE WITH DINNER Hx Substance Use: No Physical Exam Vital Signs Last Vital Signs Temp 37.5 C 03/04/21 07:22 Pulse 90 03/04/21 07:22 Resp 14 03/04/21 07:22 BP 113/69 03/04/21 07:22 Pulse Ox 92 03/04/21 07:22 Testing Laboratory Results 03/04/21 05:47 03/04/21 05:47 Urine Color Yellow 03/03/21 20:07 Urine Appearance Clear (Clear) 03/03/21 20:07 Urine pH 5.0 (4.5-7.5) 03/03/21 20:07 Ur Specific [place] 1.021 (1.000-1.030) 03/03/21 20:07 Urine Protein Negative (Negative) 03/03/21 20:07 Urine Glucose (UA) Negative (Negative) 03/03/21 20:07 Urine Ketones Trace (Negative) H 03/03/21 20:07 Urine Nitrite Negative (Negative) 03/03/21 20:07 Ur Leukocyte Esterase Negative (Negative) 03/03/21 20:07 Electrocardiogram Date: 03/03/21 Findings: + NSR @ (85)
[2021-03-04] MEDS: FAMOTIDINE 20 MG TAB PO SCH (09:42)
[2021-03-04] MEDS: CHOLECALCIFEROL 1,000 UNITS 25 MCG TAB PO SCH (09:42)
[2021-03-04] MEDS ORDERED: ROCURONIUM BROMIDE 10 MG/ML 5 ML VIAL IV ONE (11:30)
[2021-03-04] MEDS ORDERED: PROPOFOL IV EMULSION 10 MG/ML 20 ML VIAL IV ONE (11:30)
[2021-03-04] MEDS ORDERED: fentaNYL citrate 100 MCG/2 ML VIAL ONE ×3 (11:31→14:33)
[2021-03-04] MEDS ORDERED: BUPIVACAINE 0.5 % 5 MG/1 ML MPF 30ML VIAL ONE (11:36)
[2021-03-04] MEDS ORDERED: ATROPINE SULFATE 0.1 MG/ML 10ML SYR IV PRN (12:37)
[2021-03-04] MEDS ORDERED: KETOROLAC 30 MG/ML VIAL IV PRN ×2 (12:37→14:32)
[2021-03-04] MEDS ORDERED: fentaNYL citrate 100 MCG/2 ML VIAL IV PRN (12:37)
--- NOTE | 2021-03-04 12:39 | Surgery Progress Note ---
Date of Service March 04, 2021 Assessment & Plan (1) Acute calculous cholecystitis: Plan: 70-year-old female with acute calculus cholecystitis Plan for laparoscopic cholecystectomy, possible cholangiogram The risk the procedure were discussed to include but not limited to bleeding, infection, retained stone, bile leak, damage surrounding structures including common bile duct, conversion open, need for future more extensive surgery, and the risk of anesthesia Likely discharge tomorrow Admission and Anticipated Discharge Date Admission Date: March 03, 2021 Subjective 70-year-old female admitted with acute calculus cholecystitis, feeling slightly better but still with abdominal discomfort. Physical Exam Constitutional: WD/WN, vitals as above Respiratory: normal respiratory effort, lungs clear to auscultation Cardiovascular: RRR, no murmur, no edema Gastrointestinal (Abdomen): Percussion/Palpation: + abdomen tender (Tender to palpation in right upper quadrant) and abdomen soft; no guarding, abdomen not rigid and no hepatosplenomegaly Results & Data ([facility]) Vital Signs (Past 12 Hours) Vital Signs Temp Pulse Pulse Resp BP BP Pulse Ox 03/04/21 12:17 37.1 C 101 H 18 127/74 91 03/04/21 11:03 37.8 C H 88 18 116/67 92 03/04/21 07:22 37.5 C 90 14 113/69 92 03/04/21 01:05 36.9 C 89 16 148/86 H 94 03/04/21 00:50 80 19 122/76 92 Laboratory Results Laboratory Results - last 24 hr 03/03/21 03/03/21 03/03/21 20:07 20:07 20:07 WBC 17.50 H RBC 4.96 Hgb 15.6 Hct 46.1 MCV 92.9 MCH 31.5 MCHC 33.8 RDW Std Deviation 46.2 RDW Coeff of Yun 13.6 Plt Count 327 MPV 10.3 Immature Gran % (Auto) 0.2 Neut % (Auto) 86.4 Lymph % (Auto) 8.6 Norton % (Auto) 4.6 Eos % (Auto) 0.1 Baso % (Auto) 0.1 Neut # (Auto) 15.14 H Lymph # (Auto) 1.50 Norton # (Auto) 0.80 H Eos # (Auto) 0.01 Baso # (Auto) 0.01 Immature Gran # (Auto) 0.04 H Sodium 137 Potassium 3.8 Chloride 102 Carbon Dioxide 27 Anion Gap 7.0 BUN 14 Creatinine 0.76 Est Cr Clr Drug Dosing 61.2 Est GFR ( Amer) 90.8 Est GFR (Non-Af Amer) 78.4 BUN/Creatinine Ratio 18.4 Glucose 136 H Calcium 11.2 H Total Bilirubin 0.3 AST 15 ALT 27 Alkaline Phosphatase 129 H Total Protein 8.0 Albumin 3.8 Globulin 4.2 H Albumin/Globulin Ratio 0.9 Lipase 99 Urine Color Yellow Urine Appearance Clear Urine pH 5.0 Ur Specific [place]ramer 1.021 Urine Protein Negative Urine Glucose (UA) Negative Urine Ketones Trace H Urine Blood Negative Urine Nitrite Negative Urine Bilirubin Negative Urine Urobilinogen Negative Ur Leukocyte Esterase Negative COVID-19 Eval Order SARS-CoV-2 (PCR) 03/03/21 03/03/21 03/04/21 22:49 22:49 05:47 WBC 15.04 H RBC 4.50 Hgb 14.0 Hct 42.6 MCV 94.7 MCH 31.1 MCHC 32.9 RDW Std Deviation 47.4 H RDW Coeff of Yun 13.6 Plt Count 257 MPV 10.0 Immature Gran % (Auto) 0.3 Neut % (Auto) 79.0 Lymph % (Auto) 14.2 Norton % (Auto) 6.3 Eos % (Auto) 0.1 Baso % (Auto) 0.1 Neut # (Auto) 11.89 H Lymph # (Auto) 2.14 Norton # (Auto) 0.95 H Eos # (Auto) 0.01 Baso # (Auto) 0.01 Immature Gran # (Auto) 0.04 H Sodium Potassium Chloride Carbon Dioxide Anion Gap BUN Creatinine Est Cr Clr Drug Dosing Est GFR ( Amer) Est GFR (Non-Af Amer) BUN/Creatinine Ratio Glucose Calcium Total Bilirubin AST ALT Alkaline Phosphatase Total Protein Albumin Globulin Albumin/Globulin Ratio Lipase Urine Color Urine Appearance Urine pH Ur Specific [place]ramer Urine Protein Urine Glucose (UA) Urine Ketones Urine Blood Urine Nitrite Urine Bilirubin Urine Urobilinogen Ur Leukocyte Esterase COVID-19 Eval Order Covid19 at [facility] SARS-CoV-2 (PCR) NEGATIVE 03/04/21 05:47 WBC RBC Hgb Hct MCV MCH MCHC RDW Std Deviation RDW Coeff of Yun Plt Count MPV Immature Gran % (Auto) Neut % (Auto) Lymph % (Auto) [place] % (Auto) Eos % (Auto) Baso % (Auto) Neut # (Auto) Lymph # (Auto) Norton # (Auto) Eos # (Auto) Baso # (Auto) Immature Gran # (Auto) Sodium 136 Potassium 3.9 Chloride 102 Carbon Dioxide 32 Anion Gap 2.0 L BUN 11 Creatinine 0.79 Est Cr Clr Drug Dosing 58.8 Est GFR ( Amer) 86.7 Est GFR (Non-Af Amer) 74.8 BUN/Creatinine Ratio 14.1 Glucose 132 H Calcium 9.5 D Total Bilirubin 0.6 AST 12 L ALT 21 Alkaline Phosphatase 104 Total Protein 6.8 Albumin 3.1 L Globulin 3.7 Albumin/Globulin Ratio 0.8 L Lipase Urine Color Urine Appearance Urine pH Ur Specific [place]ramer Urine Protein Urine Glucose (UA) Urine Ketones Urine Blood Urine Nitrite Urine Bilirubin Urine Urobilinogen Ur Leukocyte Esterase COVID-19 Eval Order SARS-CoV-2 (PCR) Diagnostic Findings CT abd pelvis IV con only CLINICAL HISTORY: upper ab pain TECHNIQUE: Helical axial images of the abdomen and pelvis were obtained and displayed. Automated dose lowering techniques and/or adjustment according to patient size were utilized for this exam. This exam was performed with intravenous contrast. COMPARISON: None available at the time of this dictation. FINDINGS: Lower chest: Bibasilar atelectasis is seen. Liver: Multiple hypodensities are seen compatible with cysts Gallbladder and biliary tree: Distended gallbladder with multiple stones in the gallbladder body and neck. Mild wall thickening to approximately 4 mm in cholecystic fluid noted. No intra- or extrahepatic biliary ductal dilation. Pancreas: Unremarkable, no focal lesions. Spleen: Unremarkable. Adrenals: Unremarkable. Kidneys and ureters: Unremarkable. Bladder: Unremarkable. Reproductive organs: Unremarkable. Bowel: Diverticulosis is seen without evidence of diverticulitis. Lymph nodes Retroperitoneal: Unremarkable. Mesenteric: Unremarkable. Pelvic: Unremarkable. Peritoneum: Normal Vessels: Atherosclerosis is seen. Abdominal wall: A fat-containing umbilical hernia is seen. Bones: Degenerative changes in the visualized spine. IMPRESSION: Findings are compatible with acute cholecystitis. ULTRASOUND RIGHT UPPER QUADRANT ABDOMEN CLINICAL HISTORY: Right upper quadrant abdominal pain. COMPARISON STUDY: Abdominal CT performed the same day 03/03/2021. TECHNIQUE: Real-time, grayscale, and color flow sonography of the right upper quadrant of the abdomen was performed. Images are reviewed in the transverse and longitudinal planes. FINDINGS: Liver: The liver is normal in size and echotexture. There is no intrahepatic biliary ductal dilatation. The main portal vein is patent. Scattered hepatic cysts measure up to 3.5 cm. Gallbladder: The gallbladder is distended and contains both shadowing gallstones and sludge. Several stones are seen in the region of the gallbladder neck. The gallbladder wall is thickened and edematous, measuring up to 5 mm. There is no pericholecystic fluid. A sonographic Kirk's sign could not be evaluated as the patient received analgesia. The common bile duct measures up to 0.3 cm in diameter. Pancreas: Visualized portions of the pancreatic head and body are normal in appearance. Right kidney: Survey images of the right kidney demonstrate normal size and echotexture. There is no hydronephrosis. Ascites: None. IMPRESSION: 1. Cholelithiasis with evidence of acute cholecystitis. Surgical consultation is advised. 2. No intra or extrahepatic biliary ductal dilatation is identified. PG Care Time/CCT Total # of Minutes Spent Total Time Spent with Patient: Total time spent is greater than 50% in coordination of care (as documented) at patient's floor/unit and/or counseling patient: Coding Level of Care Code 27404 Subseq Hosp Care Lvl 2 Diagnoses Acute calculous cholecystitis K80.00
[2021-03-04] MEDS ORDERED: DEXAMETHASONE SOD INJ 4 MG/ML VIAL ONE (12:52)
[2021-03-04] MEDS ORDERED: PHENYLEPHRINE HCL 10 MG/ML VIAL ONE (12:52)
[2021-03-04] MEDS ORDERED: ONDANSETRON INJ 2 MG/ML 2 ML VIAL ONE (12:52)
[2021-03-04] MEDS ORDERED: GLYCOPYRROLATE 0.2 MG/ML VIAL ONE (13:24)
[2021-03-04] MEDS ORDERED: NEOSTIGMINE METHYLSULFATE 1 MG/ML 10ML VIAL ONE (13:24)
--- NOTE | 2021-03-04 14:06 | Operative Report ---
PG Post Operative Report Pre & Post Diagnosis Operation Date: 03/04/21 09:20 Pre-Op Diagnosis: Cholecystitis Post-Op Diagnosis: Cholecystitis I identified the patient and participated in the time-out.: Yes Procedure Operation Date: 03/04/21 09:20 Actual Procedures p Laparoscopic Cholecystectomy(Not Applicable) - Cameron Wray DO, JOSUE Surgeon Cameron Wray DO, JOSUE Road Maker Serenity Gama Estimated Blood Loss 10 Findings Consistent with Post-Op Diagnosis Acute on chronic cholecystitis with fibrinous exudate and reactive peritonitis. Critical view of safety obtained, cystic duct and artery doubly clipped and divided. Good hemostasis. Specimens Gallbladder Anesthesia Type General Complications none Disposition Accompanied Patient To Recovery: No Disposition: Recovery Room Indications 70-year-old female admitted with acute calculus cholecystitis, plan for laparoscopic cholecystectomy possible cholangiogram. The risks of the procedure were discussed, all questions were answered, and the patient agreed to proceed with surgery as planned. Description of Procedure The patient was properly identified, consented, and taken to the operating room where she was placed in the supine position. General endotracheal anesthesia was induced. SCDs and a safety belt were placed. Preoperative antibiotics were administered. The patient's abdomen was prepped and draped in the standard sterile fashion. A surgical timeout was performed and all parties were in agreement that this was the correct patient and procedure to be performed and we continued as planned. An incision was made superior and to the left of the umbilicus overlying the rectus muscle and the Veress needle was inserted. Saline drop test confirmed entry into the peritoneum. The abdomen was insufflated with carbon dioxide which the patient tolerated without incident. The abdomen was then entered using the Optiview technique and a 5 mm trocar. The laparoscope was inserted and no damage from initial trocar or Veress needle placement was noted, no gross abnormalities were noted within the 4 quadrants of the abdomen. An 11 mm port was placed in the subxiphoid position and two 5 mm ports were then placed in the right subcostal position. The patient was placed in reverse Trendelenburg position and rotated towards the left. The gallbladder was acutely and chronically inflamed. There is some fibrinous exudate and reactive peritonitis. The gallbladder was friable and upon grasping the dome of the gallbladder it tore, and bile was suctioned. The dome of the gallbladder was retracted towards the left upper quadrant and the infundibulum was retracted toward the right lower quadrant revealing Calot's triangle. Peritoneal attachments were taken down with electrocautery and blunt dissection. The cystic duct and artery were circumferentially dissected. A window of safety was obtained showing the cystic duct entering the gallbladder with no aberrant structures noted. The cystic duct and artery were doubly clipped and divided. The gallbladder was then lifted off the gallbladder fossa with electrocautery. The gallbladder was placed in an Endo Catch bag and removed through the subxiphoid port site. The right upper quadrant was irrigated and hemostasis was found to be good. 5 mm trochars were removed under direct visualization and the abdomen was allowed to collapse. The subxiphoid port site fascia was closed with 0 Vicryl suture utilizing the Jj-Thaddeus device prior to removal of the ports. The wound was irrigated, and the skin of all ports was closed with 4-0 Monocryl subcuticular sutures. Dermabond was placed over the wounds. The patient was extubated in the operating room and taken to the PACU where she recovered without apparent incident. All sponge, instrument and needle counts were correct at the conclusion of the procedure. The patient tolerated the procedure well. The physician's physician assistant surgery was present and scrubbed for the entirety of the case and was essential in positioning the patient, prepping and draping, retraction and exposure, driving the laparoscope, removal of the gallbladder, closure the incisions, and placement of the dressings. I attest to the content of the Intraoperative Record and any orders documented therein. Any exceptions are noted below.
[2021-03-04] MEDS ORDERED: MoRPHine SULFATE 4 MG/ML 1 ML CARP\\VIAL IV PRN (14:20)
[2021-03-04] MEDS ORDERED: oxyCODONE/ACETAMINOPHEN 5mg/325mg TAB PO PRN ×2 (14:20)
[2021-03-04] MEDS ORDERED: MoRPHine SULFATE 2 MG/ML CARP IV PRN (14:20)
[2021-03-04] MEDS: fentaNYL citrate 100 MCG/2 ML VIAL IV PRN ×5 (14:36→15:07)
--- NOTE | 2021-03-04 15:12 | Anesthesiology Progress Note ---
Date of Service March 04, 2021 Anesthesia Post Procedure Vital Signs Vital Signs: Temp Pulse Pulse Pulse Resp BP BP 03/04/21 15:05 84 17 133/78 03/04/21 14:55 90 21 154/83 H 03/04/21 14:45 93 H 20 152/74 H 03/04/21 14:35 89 21 150/78 H 03/04/21 14:25 93 H 18 136/83 03/04/21 14:18 36.7 C 99 H 15 156/87 H 03/04/21 12:17 37.1 C 101 H 18 127/74 03/04/21 11:03 37.8 C H 88 18 116/67 03/04/21 07:22 37.5 C 90 14 113/69 03/04/21 01:05 36.9 C 89 16 148/86 H 03/04/21 00:50 80 19 122/76 03/04/21 00:00 80 15 125/69 03/03/21 22:30 84 18 155/83 H 03/03/21 22:20 85 20 03/03/21 22:10 78 20 03/03/21 22:00 82 19 144/87 H 03/03/21 21:00 82 21 155/94 H 03/03/21 19:21 37.4 C 81 18 166/88 H Pulse Ox 03/04/21 15:05 93 03/04/21 14:55 94 03/04/21 14:45 91 03/04/21 14:35 97 03/04/21 14:25 96 03/04/21 14:18 93 03/04/21 12:17 91 03/04/21 11:03 92 03/04/21 07:22 92 03/04/21 01:05 94 03/04/21 00:50 92 03/04/21 00:00 90 03/03/21 22:30 94 03/03/21 22:20 97 03/03/21 22:10 94 03/03/21 22:00 94 03/03/21 21:00 97 03/03/21 19:21 95 Pain Intensity Lower Abdomen: Pain Intensity: 6 Transfer of Care Handoff Completed per policy Notes Mental Status: alert / awake / arousable Patient Amnestic to Procedure: Yes Nausea / Vomiting: adequately controlled Pain: adequately controlled Airway Patency, RR, SpO2: stable & adequate BP & HR: stable & adequate Hydration State: stable & adequate Anesthetic Complications: no major complications apparent
[2021-03-04] MEDS: ACETAMINOPHEN 325 MG TAB PO PRN (22:16)
--- NOTE | 2021-03-04 22:58 | Electrocardiogram Report ---
Test Reason : Blood Pressure : / mmHG Vent. Rate : 085 BPM Atrial Rate : 085 BPM P-R Int : 136 ms QRS Dur : 082 ms QT Int : 376 ms P-R-T Axes : 057 -14 045 degrees QTc Int : 447 ms Normal sinus rhythm Possible Left atrial enlargement Borderline ECG When compared with ECG of 21-DEC-2020 13:29, T wave inversion no longer evident in Lateral leads Confirmed by Mayur Rene ([id number]) on 03/04/2021 10:58:23 PM Referred By: REFERRED SELF Confirmed By:Mayur Rene
[2021-03-05 00:16] VITALS: O2SAT 91
[2021-03-05] MEDS: LACTATED RINGER'S 1,000 ML IV SCH (03:21)
[2021-03-05] MEDS: ACETAMINOPHEN 325 MG TAB PO PRN (04:08)
[2021-03-05] MEDS: cefOXitin 2,000 MG in DEXTROSE 5% 50 ML IV SCH ×2 (05:24→11:12)
[2021-03-05 05:30] VITALS: PULSE 90
[2021-03-05 07:15] VITALS: BP 119/65; TEMP 98.8
--- NOTE | 2021-03-05 08:28 | Surgery Progress Note ---
Date of Service March 05, 2021 Assessment & Plan (1) Acute calculous cholecystitis: Plan: POD#1 lap torres Pain manageable with prn medications Pt tolerating regular diet Incisions c/d/i, some ecchymosis around epigastric incision Will check up on later today for possible discharge to home Admission and Anticipated Discharge Date Admission Date: March 03, 2021 Supervising Physician Co-Signing Physician Notes pnt s&e, agree with above. POD1 lap torres, some pain but feels different than prior. tolerating diet. abd soft, appropriately ttp. ecchymosis at epigastric incision. d/c this afternoon if doing well. Subjective Patient feeling okay this AM. Has some expected post op RUQ pain and gas. She has been tolerating a diet without nausea/vomiting. She is ambulating. Physical Exam Physical Exam: awake/alert Gastrointestinal (Abdomen): Inspection/Auscultation: + abdominal surgical incision (c/d/i, some ecchymosis around epigastric incision) Percussion/Palpation: + abdomen tender (some TTP around RUQ) and abdomen soft Results & Data ([facility]) Vital Signs (Past 12 Hours) Vital Signs Temp Pulse Resp BP Pulse Ox 03/05/21 07:14 37.1 C 90 14 119/65 91 03/05/21 03:48 37.0 C 90 16 133/87 91 03/04/21 23:07 37.4 C 99 H 16 117/71 91 PG Care Time/CCT Total # of Minutes Spent Total Time Spent with Patient: Total time spent is greater than 50% in coordination of care (as documented) at patient's floor/unit and/or counseling patient: Coding Level of Care Code None Diagnoses Acute calculous cholecystitis K80.00
[2021-03-05] MEDS: FAMOTIDINE 20 MG TAB PO SCH (08:31)
[2021-03-05] MEDS: CHOLECALCIFEROL 1,000 UNITS 25 MCG TAB PO SCH (08:31)
--- NOTE | 2021-03-05 13:53 | Discharge Summary ---
Date of Service March 05, 2021 Admission HPI Per Admitting Provider This is a 70-year-old female who presented to [facility] emergency department secondary abdominal pain. The patient says that the abdominal pain is located in her upper abdomen in the epigastric, left upper quadrant, as well as right upper quadrant.The patient notes that the pain occurred randomly and was not related to meals. She says that the pain does not radiate. She denies any provocative factors and notes that the pain is palliated with medicines administered in the emergency department. She denies any fevers, shakes, chills. She did have nausea without vomiting. Looking back over the past several months patient says that intermittently she will get some indigestion 20 to 30 minutes after eating but has never been problematic such as this. Because of her symptoms she presented the emergency department. The patient does note that she has had prior abdominal surgery as she has had a laparoscopic appendectomy in the past. In the emergency department patient had labs and imaging which I independently reviewed. She did have a CT scan of the abdomen and pelvis which showed gallbladder distention with cholelithiasis. There is mild gallbladder edema. The interpreting radiologist favored a diagnosis of cholecystitis on the study. Labs include a CBC her white blood cell count was elevated at 17.5. Her hemoglobin, hematocrit, and platelet count were within normal range. Chemistry profile showed sodium, potassium, BUN, and creatinine were within normal range. Patient's bilirubin and transaminases were noted to be normal and not elevated. There is no elevation of her lipase. There is slight elevation of the alkaline phosphatase at 129. Urinalysis was not indicative of infection. I questioned the patient about her day-to-day activities and she leads an active lifestyle. The patient says that she can easily walk a mile on a flat surfaces she can negotiate steps and inclines without chest pain or shortness of breath. At time of interview she was resting comfortably in bed in no distress. Principal Diagnosis acute cholecystitis Discharge Exam awake/alert Gastrointestinal (Abdomen) Inspection/Auscultation: + abdominal surgical incision (c/d/i, ecchymosis of epigastric incision ) Percussion/Palpation: + abdomen tender (expected ttp in RUQ) and abdomen soft Discharge Data Allergies Allergy/AdvReac Type Severity Reaction Status Date / Time house dust Allergy Mild ITCHY Verified 03/03/21 21:36 EYES, SNEEZING amoxicillin [From Augmentin] AdvReac Intermediate Diarrhea Verified 03/03/21 21:36 clavulanic acid AdvReac Intermediate Diarrhea Verified 03/03/21 21:36 [From Augmentin] Consultations 03/03/21 22:05 ED Decision to Admit Stat Procedures Performed Operation Date: 03/04/21 09:20 Actual Procedures p Laparoscopic Cholecystectomy(Not Applicable) - Cameron Wray, DO, FACS Ordered Studies 03/03/21 21:07 CT abd pelvis IV con only Urgent 03/03/21 22:41 US gallbladder Urgent Hospital Course (1) Acute cholecystitis: This is a 70yF who presented to the [facility] ED on 03/03/21 with complaints of abdominal pain. Workup in the ER with a RUQ US revealed findings concerning for acute cholecystitis. She was made NPO with IVF and admitted with IVF abx. On 03/04/21 the patient went to the OR with Dr. Wray for a laparoscopic cholecystectomy. The patient tolerated the procedure well, see op note for full details. The patient recovered in the PACU and was transferred to the med/surg unit in stable condition. Post operatively her diet was advanced as tolerated, pain managed with prn medication, and she continued on post op abx. On POD#1 the patient had some expected RUQ pain, but different than admission and was made tolerable with prn meds. Incisions c/d/i. She tolerated a diet and was up ambulating well. She was deemed stable for discharge to home with plans to follow up in clinic within 2 weeks. Total Time Total Time Spent Total Time Spent (In Minutes): 10 Discharge Plan Discharge Items Patient Disposition: Home - Self-Care Reason For Visit: GERONIMO Discharge Diagnosis: laparoscopic cholecystectomy Activity: Per Instructions section Lifting: No more than 10 pounds Bathing Comment: may shower starting 03/05/21; no soaking in tubs/pools Exercise/Sports: Wait until after follow-up appointment Driving/Machine Use: no driving while taking narcotics for pain Non-emergency contact: Surgeon Call non-emergency contact if: you have any medication questions, your symptoms worsen, your pain is not controlled, your pain is worsening, you have a fever, your temperature is above 101.5, your wound has increased redness, your wound has increased drainage and your wound pain has increased Follow-up/Referrals: Bereket Partida III, CRNP [Primary Care Provider] - 03/16/21 9:20 am Cameron Wray DO, FACS [Physician] - 03/25/21 9:15 am (Please call to schedule follow up in clinic within 2 weeks) Diet: Regular Addtl Attending Provider Instructions: Pending Studies at Discharge: Yes Studies:: surgical pathology Stand-Alone Forms: [facility] AddThis, Smoking Cessation Medications and DC Order Prescriptions: New oxycodone-acetaminophen [Percocet] 5-325 mg tablet 1 - 2 tab PO .q4-6h PRN (Reason: pain, for initial therapy, max 6 tabs per day) Qty: 15 RF: 0 Continued albuterol sulfate [Ventolin HFA] 90 mcg/actuation HFA aerosol inhaler 2 puffs INH Q6H PRN (Reason: shortness of breath or wheezing) Qty: 8 RF: 0 cholecalciferol (vitamin D3) 50 mcg (2,000 unit) tablet 1,000 unit PO DAILY RF: 0 famotidine 20 mg tablet 20 mg PO DAILY RF: 0 ondansetron 4 mg tablet,disintegrating 4 mg PO Q6H PRN (Reason: nausea and vomiting) Qty: 10 RF: 0 B [id number] Tablet 1 tab PO DAILY RF: 0 Discharge Orders: Discharge Order (Routine); Ordered 03/05/21 Ordered By: Serenity Gama Admission Data Admit Date/Time: 03/03/21 22:49 Attending Provider: Cameron Wray Admit Provider: Cameron Wray Primary Care Provider: Bereket Partida III Other Providers: Cameron Wray Other Interventions: Discharge Summary Assessment (RN) Last Done: 03/05/21 11:28 Coding Level of Care Code D/C DAY MANAGEMENT <30 MINS Diagnoses Acute cholecystitis K81.0
== END 2021-03-05 13:24 | disposition home or self-care (01) ==
LOC: 3N 19:07 → ED 19:07 → 3N 03-04 00:53